=== PATIENT | female | born 1950 | race American Indian/Alaskan Native ===

== ENCOUNTER 2020-01-26 15:30 | Emergency (ER) | payer MEDICARE ==
--- NOTE | 2020-01-26 16:45 | Emergency Department Report ---
ED General Adult HPI - General Chief complaint: Psych Stated complaint: 1013 Time Seen by Provider: 01/26/20 16:13 Source: police Mode of arrival: Ambulatory Limitations: No Limitations - History of Present Illness Initial comments: Patient presents to the emergency department via local PD for evaluation. Patient states she has been going to the same facility daily trying to fill out application for senior housing and today they told her that they want her off the property and called the police. Patient states she was arguing with nobody and was not sure why the police was called. Patient states she was given the choice of going to correction or come to the hospital so she chose the hospital. Patient does have a history of schizophrenia but states she is not manic currently. She states she hears voices constantly in the something she has been dealing with for years. Patient states she is on no medications for schizophrenia. Patient denies visual hallucinations, suicidal ideation, homicidal ideation.Patient states she needs somewhere to live -: unknown Consistency: constant Improves with: none Worsens with: none Associated Symptoms: denies other symptoms Treatments Prior to Arrival: none - Related Data Home Medications Medication Instructions Recorded Confirmed Last Taken Calcium Carbonate [Calcium 600MG 600 mg PO DAILY 01/26/20 01/26/20 1 Day Ago TAB] ~01/25/20 Furosemide [Lasix] 20 mg PO QDAY 01/26/20 01/26/20 1 Day Ago ~01/25/20 metFORMIN [Glucophage] 500 mg PO BID 01/26/20 01/26/20 1 Day Ago ~01/25/20 Allergies Allergy/AdvReac Type Severity Reaction Status Date / Time shellfish derived Allergy Anaphylaxis Verified 01/26/20 16:13 ED Review of Systems ROS: Stated complaint: 1013 Other details as noted in HPI Comment: All other systems reviewed and negative Constitutional: denies: chills, fever Eyes: denies: eye pain, eye discharge, vision change ENT: denies: ear pain, throat pain Respiratory: denies: cough, shortness of breath, wheezing Cardiovascular: denies: chest pain, palpitations Endocrine: no symptoms reported Gastrointestinal: denies: abdominal pain, nausea, diarrhea Genitourinary: denies: urgency, dysuria, discharge Musculoskeletal: denies: back pain, joint swelling, arthralgia Skin: denies: rash, lesions Neurological: denies: headache, weakness, paresthesias Psychiatric: auditory hallucinations. denies: anxiety, depression, visual hallucinations, homicidal thoughts, suicidal thoughts Hematological/Lymphatic: denies: easy bleeding, easy bruising ED Past Medical Hx - Past Medical History Hx Hypertension: Yes Hx Diabetes: Yes - Surgical History Past Surgical History?: No - Social History Smoking Status: Never Smoker Substance Use Type: None - Medications Home Medications: Home Medications Medication Instructions Recorded Confirmed Last Taken Type Calcium Carbonate [Calcium 600MG 600 mg PO DAILY 01/26/20 01/26/20 1 Day Ago History TAB] ~01/25/20 Furosemide [Lasix] 20 mg PO QDAY 01/26/20 01/26/20 1 Day Ago History ~01/25/20 metFORMIN [Glucophage] 500 mg PO BID 01/26/20 01/26/20 1 Day Ago History ~01/25/20 ED Physical Exam - General Limitations: No Limitations General appearance: alert, in no apparent distress - Head Head exam: Present: atraumatic, normocephalic - Eye Eye exam: Present: other ([place] right eye) - ENT ENT exam: Present: mucous membranes moist - Neck Neck exam: Present: normal inspection - Respiratory Respiratory exam: Present: normal lung sounds bilaterally. Absent: respiratory distress, wheezes, rales - Cardiovascular Cardiovascular Exam: Present: regular rate, normal rhythm. Absent: systolic murmur, diastolic murmur, rubs, gallop - GI/Abdominal GI/Abdominal exam: Present: soft, normal bowel sounds. Absent: distended, tenderness - Extremities Exam Extremities exam: Present: normal inspection - Back Exam Back exam: Present: normal inspection - Neurological Exam Neurological exam: Present: alert, oriented X3, CN II-XII intact. Absent: motor sensory deficit - Psychiatric Psychiatric exam: Present: normal affect, normal mood. Absent: homicidal ideation, suicidal ideation - Skin Skin exam: Present: warm, dry, intact, normal color. Absent: rash ED Course Vital Signs 01/26/20 16:03 Temperature 98.1 F Pulse Rate 63 Respiratory 18 Rate Blood Pressure 145/78 O2 Sat by Pulse 99 Oximetry ED Medical Decision Making - Lab Data Result diagrams: 01/26/20 16:37 01/26/20 16:37 Lab Results 01/26/20 01/26/20 01/26/20 Range/Units 16:37 16:37 16:37 WBC (4.5-11.0) K/mm3 RBC (3.65-5.03) M/mm3 Hgb (10.1-14.3) gm/dl Hct (30.3-42.9) % MCV (79-97) fl MCH (28-32) pg MCHC (30-34) % RDW (13.2-15.2) % Plt Count (140-440) K/mm3 Lymph % (Auto) (13.4-35.0) % [place] % (Auto) (0.0-7.3) % Eos % (Auto) (0.0-4.3) % Baso % (Auto) (0.0-1.8) % Lymph # (Auto) (1.2-5.4) K/mm3 [place] # (Auto) (0.0-0.8) K/mm3 Eos # (Auto) (0.0-0.4) K/mm3 Baso # (Auto) (0.0-0.1) K/mm3 Seg Neutrophils % (40.0-70.0) % Seg Neutrophils # (1.8-7.7) K/mm3 Sodium 144 (137-145) mmol/L Potassium 3.8 (3.6-5.0) mmol/L Chloride 105.3 (98-107) mmol/L Carbon Dioxide 28 (22-30) mmol/L Anion Gap 15 mmol/L BUN 19 H (7-17) mg/dL Creatinine 1.2 (0.6-1.2) mg/dL Estimated GFR 45 ml/min BUN/Creatinine Ratio 16 % Glucose 111 H (65-100) mg/dL Calcium 8.8 (8.4-10.2) mg/dL Salicylates < 0.3 L (2.8-20.0) mg/dL Acetaminophen 5.0 L (10.0-30.0) ug/mL Plasma/Serum Alcohol (0-0.07) % 01/26/20 01/26/20 Range/Units 16:37 16:37 WBC 5.8 (4.5-11.0) K/mm3 RBC 4.16 (3.65-5.03) M/mm3 Hgb 12.0 (10.1-14.3) gm/dl Hct 37.3 (30.3-42.9) % MCV 90 (79-97) fl MCH 29 (28-32) pg MCHC 32 (30-34) % RDW 17.0 H (13.2-15.2) % Plt Count 194 (140-440) K/mm3 Lymph % (Auto) 17.6 (13.4-35.0) % [place] % (Auto) 7.7 H (0.0-7.3) % Eos % (Auto) 11.6 H (0.0-4.3) % Baso % (Auto) 0.7 (0.0-1.8) % Lymph # (Auto) 1.0 L (1.2-5.4) K/mm3 [place] # (Auto) 0.4 (0.0-0.8) K/mm3 Eos # (Auto) 0.7 H (0.0-0.4) K/mm3 Baso # (Auto) 0.0 (0.0-0.1) K/mm3 Seg Neutrophils % 62.4 (40.0-70.0) % Seg Neutrophils # 3.6 (1.8-7.7) K/mm3 Sodium (137-145) mmol/L Potassium (3.6-5.0) mmol/L Chloride (98-107) mmol/L Carbon Dioxide (22-30) mmol/L Anion Gap mmol/L BUN (7-17) mg/dL Creatinine (0.6-1.2) mg/dL Estimated GFR ml/min BUN/Creatinine Ratio % Glucose (65-100) mg/dL Calcium (8.4-10.2) mg/dL Salicylates (2.8-20.0) mg/dL Acetaminophen (10.0-30.0) ug/mL Plasma/Serum Alcohol < 0.01 (0-0.07) % - Medical Decision Making Patient given resources for housing by Critical care attestation.: If time is entered above; I have spent that time in minutes in the direct care of this critically ill patient, excluding procedure time. ED Disposition Clinical Impression: Schizophrenia Disposition: DC-01 TO HOME OR SELFCARE Is pt being admited?: No Does the pt Need Aspirin: No Condition: Stable Instructions: Schizophrenia (ED) Additional Instructions: return if worse ONES,GEORGE Female : 1950 MedRec# [id number] 01/26/20 17:43 - MH Sample Driller's Note by GRACIELA DIMAS Acct Num: [id number] : 1950 Patient Age: 69 Transitional [facility] Providers: RAMBO Vega [id number] Jimmy Bunch Jayson [phone] Address: [address] [place] [id number] Original: Hiren Curry [phone] Ms. Gaming: Taryn Hopson [phone] Ms. Yelena Burris Hiren [phone] [facility] [phone] Ms. Nieves: [phone] [facility] Home: [facility] [phone] [facility] Initialized on 01/26/20 17:43 - END OF NOTE Referrals: PRIMARY CARE, [Primary Care Provider[facility] Time of Disposition: 20:10
[2020-01-26 17:39] LABS: Calcium 8.8 mg/dL (8.4-10.2)
[2020-01-26 17:40] LABS: Basophils % (Auto) 0.7 % (0.0-1.8); Eosinophils # (Auto) 0.7 K/mm3 (0.0-0.4); Eosinophils % (Auto) 11.6 % (0.0-4.3); Hematocrit 37.3 % (30.3-42.9); Lymphocytes % (Auto) 17.6 % (13.4-35.0); Mean Corpuscular HGB Conc 32 % (30-34); Mean Corpuscular Volume 90 fl (79-97); Monocytes # (Auto) 0.4 K/mm3 (0.0-0.8); Monocytes % (Auto) 7.7 % (0.0-7.3); Platelet Count 194 K/mm3 (140-440); Red Blood Count 4.16 M/mm3 (3.65-5.03)
[2020-01-27 08:09] VITALS: BP 154/95
== END 2020-01-27 10:00 | disposition home or self-care (01) ==
LOC: ED 15:30
DX: F20.9 Schizophrenia, unspecified (principal); I10 Essential (primary) hypertension; E11.9 Type 2 diabetes mellitus without complications; Z79.84 Long term (current) use of oral hypoglycemic drugs; Z79.899 Other long term (current) drug therapy; Z91.013 Allergy to seafood
CPT/HCPCS: 36415; 80048; 80320; 85025; G0480

== ENCOUNTER 2020-01-27 15:17 | Emergency (ER) | payer MEDICARE ==
--- NOTE | 2020-01-27 16:45 | XRay Report ---
XR chest routine 2V INDICATION / CLINICAL INFORMATION: Chest Pain COMPARISON: None available. FINDINGS: SUPPORT DEVICES: Left transvenous AICD. HEART / MEDIASTINUM: Mildly prominent cardiac silhouette.. LUNGS / PLEURA: Lungs are clear. Costophrenic sulci are sharp. No pneumothorax. ADDITIONAL FINDINGS: No significant additional findings. IMPRESSION: 1. Mild cardiomegaly without acute findings. Signer Name: Félix Garrido MD Signed: 01/27/2020 4:41 PM Workstation Name: [id number]
[2020-01-27 17:02] LABS: Basophils % (Auto) 0.3 % (0.0-1.8); Eosinophils # (Auto) 0.6 K/mm3 (0.0-0.4); Eosinophils % (Auto) 8.6 % (0.0-4.3); Hematocrit 38.1 % (30.3-42.9); Hemoglobin 12.1 gm/dl (10.1-14.3); Lymphocytes # (Auto) 1.5 K/mm3 (1.2-5.4); Lymphocytes % (Auto) 20.8 % (13.4-35.0); Mean Corpuscular HGB Conc 32 % (30-34); Mean Corpuscular Volume 90 fl (79-97); Monocytes # (Auto) 0.4 K/mm3 (0.0-0.8); Monocytes % (Auto) 5.6 % (0.0-7.3); Platelet Count 190 K/mm3 (140-440); Red Blood Count 4.21 M/mm3 (3.65-5.03); Red Cell Distribution Width 17.1 % (13.2-15.2)
[2020-01-27 17:27] LABS: Alanine Aminotransferase 16 units/L (7-56); Albumin 3.7 g/dL (3.9-5); BUN/Creatinine Ratio 20; Blood Urea Nitrogen 18 mg/dL (7-17); Calcium 8.6 mg/dL (8.4-10.2); Hemolysis Index 13
--- NOTE | 2020-01-27 18:56 | Emergency Department Report ---
ED Chest Pain HPI - General Chief Complaint: Chest Pain Stated Complaint: PAIN PUI?: No Time Seen by Provider: 01/27/20 18:41 Source: patient Mode of arrival: Ambulatory Limitations: No Limitations - History of Present Illness Initial Comments: Patient is a 69-year-old female that presents emergency room with complaints of chest pain shortness of breath. Patient states that her chest pain started 10 days ago. Patient states she was here yesterday and discharged this morning. Patient states she is homeless and needed to come back to be evaluated for her chest pain and shortness of breath. Patient states she is hungry. Patient states she needs something to eat. Patient states that her chest pain is a 9 Out of 10. Patient states is in her bilateral chest. patient states that her shortness of breath is unchanged by exertion or movement. Patient denies fever and chills. Patient states that she was here and discharged earlier this morning but she forgot to mention the chest pain is been going on for 12 days. Patient states a place to stay and some food will help her chest pain or shortness of breath. Patient denies recent travel. Patient denies recent international travel. Patient denies exposure to the novel coronavirus. Patient denies sick contacts. Patient denies fever and chills. Patient denies cough. Patient denies diarrhea. Patient denies coming in contact with anybody with symptoms of the novel coronavirus. MD Complaint: chest pain -: Sudden Severity scale (0 -10): 9 Quality: sharp Consistency: constant Improves With: rest Worsens With: movement re: dyspnea. denies: nausea, vomting, diaphoresis, sense of impending doom Other Symptoms: denies: cough, fever, syncope, rash, acid taste in mouth, leg swelling, palpitations, burping Treatments Prior to Arrival: none Aspirin use within the Past 7 Days: (0) No - Related Data On Oral Contraceptives: No Home Medications Medication Instructions Recorded Confirmed Last Taken Calcium Carbonate [Calcium 600MG 600 mg PO DAILY 01/26/20 01/26/20 1 Day Ago TAB] ~01/25/20 Furosemide [Lasix] 20 mg PO QDAY 01/26/20 01/26/20 1 Day Ago ~01/25/20 metFORMIN [Glucophage] 500 mg PO BID 01/26/20 01/26/20 1 Day Ago ~01/25/20 Allergies Allergy/AdvReac Type Severity Reaction Status Date / Time shellfish derived Allergy Anaphylaxis Verified 01/26/20 16:13 Heart Score - HEART Score History: Slightly suspicious EKG: Normal Age: > 65 Risk factors: 1-2 risk factors Troponin: < normal limit HEART Score: 3 ED Review of Systems ROS: Stated complaint: PAIN Other details as noted in HPI Constitutional: denies: chills, fever Eyes: denies: eye pain, eye discharge, vision change ENT: denies: ear pain, throat pain Respiratory: shortness of breath. denies: cough, wheezing Cardiovascular: chest pain. denies: palpitations Endocrine: no symptoms reported Gastrointestinal: denies: abdominal pain, nausea, diarrhea Genitourinary: denies: urgency, dysuria, discharge Musculoskeletal: denies: back pain, joint swelling, arthralgia Skin: denies: rash, lesions Neurological: denies: headache, weakness, paresthesias Psychiatric: denies: anxiety, depression Hematological/Lymphatic: denies: easy bleeding, easy bruising ED Past Medical Hx - Past Medical History Previous Medical History?: Yes Hx Hypertension: Yes Hx Diabetes: Yes - Surgical History Past Surgical History?: No - Social History Smoking Status: Never Smoker Substance Use Type: None - Medications Home Medications: Home Medications Medication Instructions Recorded Confirmed Last Taken Type Calcium Carbonate [Calcium 600MG 600 mg PO DAILY 01/26/20 01/26/20 1 Day Ago History TAB] ~01/25/20 Furosemide [Lasix] 20 mg PO QDAY 01/26/20 01/26/20 1 Day Ago History ~01/25/20 metFORMIN [Glucophage] 500 mg PO BID 01/26/20 01/26/20 1 Day Ago History ~01/25/20 ED Physical Exam - General Limitations: No Limitations General appearance: alert, in no apparent distress - Head Head exam: Present: atraumatic, normocephalic - Eye Eye exam: Present: normal appearance - ENT ENT exam: Present: mucous membranes moist - Neck Neck exam: Present: normal inspection - Respiratory Respiratory exam: Present: normal lung sounds bilaterally, chest wall tenderness. Absent: respiratory distress, wheezes, rales - Cardiovascular Cardiovascular Exam: Present: regular rate, normal rhythm. Absent: systolic murmur, diastolic murmur, rubs, gallop - GI/Abdominal GI/Abdominal exam: Present: soft, normal bowel sounds - Extremities Exam Extremities exam: Present: normal inspection - Back Exam Back exam: Present: normal inspection - Neurological Exam Neurological exam: Present: alert, oriented X3 - Psychiatric Psychiatric exam: Present: normal affect, normal mood - Skin Skin exam: Present: warm, dry, intact, normal color. Absent: rash ED Course Vital Signs 01/27/20 16:07 Temperature 98.4 F Pulse Rate 59 L Respiratory 17 Rate Blood Pressure 153/82 [Left] O2 Sat by Pulse 97 Oximetry - Reevaluation(s) Reevaluation #1: I discussed all results and clinical findings with patient. I discussed plan of care with patient. Patient agrees with plan of care. Patient is stable for discharge. Patient will be discharged home. Patient given discharge instructions. Patient voiced understanding of discharge instructions. Patient's information faxed over to our local [facility] for risk stratification of her chest pain. 01/27/20 19:28 ED Medical Decision Making - Lab Data Result diagrams: 01/27/20 16:17 01/27/20 16:17 - EKG Data -: EKG Interpreted by Me EKG shows normal: sinus rhythm, axis, intervals, QRS complexes, ST-T waves Rate: normal - EKG Data Interpretation: LVH, other (PVCs) - Radiology Data Radiology results: image reviewed interpreted by me: Chest x-ray: No pneumonia, no pneumothorax, no foreign body, no osseous findings, no acute findings. Cardiomegaly noted - Medical Decision Making Patient is a 69-year-old female that presents emergency room complaints of chest pain x12 days. Patient had labs done which were essentially unremarkable. Patient's troponin was negative x2. Patient's EKG is negative for STEMI. Patient's chest x-ray is negative for acute findings. [facility] Patient will be discharged home. Patient will referred to our local cardiology group for risk stratification. Patient given discharge instructions. - Differential Diagnosis Chest pain, costochondritis, shortness of breath, malingering Critical care attestation.: If time is entered above; I have spent that time in minutes in the direct care of this critically ill patient, excluding procedure time. ED Disposition Clinical Impression: SOB (shortness of breath) Chest pain Qualifiers: Chest pain type: unspecified Qualified Code(s): R07.9 - Chest pain, unspecified Disposition: DC-01 TO HOME OR SELFCARE Is pt being admited?: No Does the pt Need Aspirin: No Condition: Stable Instructions: Chest Pain (ED) Additional Instructions: Patient to follow-up with primary care in 2 to 3 days. Patient to follow-up with [facility] in 2 to 3 days. Patient to rest. Patient to increase water. Patient to avoid strenuous exercise or heavy lifting until cleared by card iologist and primary care. Patient to take Tylenol or ibuprofen as needed for pain. Patient to continue all medications. Patient to start 81 mg aspirin daily. Patient to return to the ER if condition worsens, changes or new symptoms arise. Referrals: SHON ROBERTSON MD [Staff Physician] - 2-3 Days PRIMARY CAREMD [Primary Care Provider] - 2-3 Days Time of Disposition: 19:30
[2020-01-27 19:44] VITALS: BP 149/89
== END 2020-01-27 20:00 | disposition home or self-care (01) ==
LOC: ED 15:17
DX: R06.02 Shortness of breath (principal); R07.89 Other chest pain; I10 Essential (primary) hypertension; E11.9 Type 2 diabetes mellitus without complications; Z79.899 Other long term (current) drug therapy; Z91.013 Allergy to seafood
CPT/HCPCS: 36415; 71046; 80053; 84484; 85025; 93005; 99283

== ENCOUNTER 2020-01-30 22:28 | Emergency (ER) | payer MEDICARE ==
[2020-01-30 22:48] VITALS: BP 133/57
[2020-01-31] MEDS ORDERED: IPRATROPIUM/ALBUTEROL SULFATE 3 ML AMPUL.NEB IH ONE (02:00)
[2020-01-31] MEDS ORDERED: dexAMETHasone 20 MG/5 ML VIAL IV ONE (02:00)
[2020-01-31] MEDS ORDERED: ASPIRIN 325 MG TAB PO ONE (02:01)
[2020-01-31 02:16] LABS: Basophils % (Auto) 0.7 % (0.0-1.8); Eosinophils # (Auto) 0.8 K/mm3 (0.0-0.4); Eosinophils % (Auto) 14.4 % (0.0-4.3); Hematocrit 38.7 % (30.3-42.9); Hemoglobin 12.4 gm/dl (10.1-14.3); Lymphocytes # (Auto) 1.3 K/mm3 (1.2-5.4); Lymphocytes % (Auto) 22.2 % (13.4-35.0); Mean Corpuscular HGB Conc 32 % (30-34); Mean Corpuscular Volume 89 fl (79-97); Monocytes # (Auto) 0.5 K/mm3 (0.0-0.8); Monocytes % (Auto) 7.9 % (0.0-7.3); Platelet Count 184 K/mm3 (140-440); Red Blood Count 4.34 M/mm3 (3.65-5.03); Red Cell Distribution Width 17.2 % (13.2-15.2)
[2020-01-31 02:41] LABS: Alanine Aminotransferase 19 units/L (7-56); Albumin 3.9 g/dL (3.9-5); BUN/Creatinine Ratio 11; Blood Urea Nitrogen 10 mg/dL (7-17); Calcium 9.4 mg/dL (8.4-10.2); Hemolysis Index 4
--- NOTE | 2020-01-31 03:07 | XRay Report ---
CHEST 1 VIEW INDICATION: dyspnea, cough COMPARISON: 01/27/2020 FINDINGS: Support devices: None Heart: Upper limits of normal, unchanged Lungs/Pleura: No acute pulmonary or pleural findings. IMPRESSION: 1. No acute disease and no interval change. Signer Name: Abdoul Ricardo MD Signed: 01/31/2020 3:02 AM Workstation Name: [id number]
[2020-01-31] MEDS ORDERED: FUROSEMIDE 20 MG TAB PO ONE (03:52)
--- NOTE | 2020-01-31 05:46 | Emergency Department Report ---
- General Chief Complaint: Upper Respiratory Infection Stated Complaint: HEADACHE, CONGESTION, & LEFT LEG SWELLING Source: patient Mode of arrival: Ambulatory Limitations: No Limitations - History of Present Illness Initial Comments: Patient is a 69-year-old -[place] female with a history of hypertension, [id number] diabetes and chronic lower extremity lymphedema who presents to the ED with acute onset persistent nasal and sinus congestion, persistent productive cough with intermittent wheezing and shortness of breath for the last 1 month, worse in the last 2 days. Patient states that she also ran out of her Lasix and metformin which she has not taken "for a few days". Patient states that she tested positive for cough with 19 viral infection about a month ago and since then her shortness of breath has been persistent. Patient denies chest pain, dizziness, syncope, fever, chills, nausea, vomiting, diarrhea, abdominal pain, dysuria, urinary frequency and urgency, sore throat, palpitations or seizures. MD Complaint: cough, nasal congestion, sinus pain, other (shortness of breath) -: Sudden, month(s) (1) Severity: moderate Severity scale (0 -10): 4 Quality: aching Consistency: intermittent Improves With: nothing Worsens With: nothing Context: sick contacts Associated Symptoms: denies other symptoms, rhinorrhea, nasal congestion, sore throat, cough, shortness of breath. denies: fever, chills, myalgias, diaphoresis, headache, stiff neck, chest pain, abdominal pain, nausea, vomiting, diarrhea, dysuria, rash, right sweats, weight loss, epistaxis, hoarseness, ear pain Treatments Prior to Arrival: none - Related Data Home Medications Medication Instructions Recorded Confirmed Last Taken Calcium Carbonate [Calcium 600MG 600 mg PO DAILY 01/26/20 01/26/20 1 Day Ago TAB] ~01/25/20 Furosemide [Lasix] 20 mg PO QDAY 01/26/20 01/26/20 1 Day Ago ~01/25/20 Previous Rx's Medication Instructions Recorded Last Taken Type Albuterol Sulfate [Proventil Hfa] 1 - 2 puff IH Q6H PRN #1 hfa.aer.ad 01/31/20 Unknown Rx Azithromycin [Zithromax Z-MANUEL] 250 mg PO DAILY #6 tablet 01/31/20 Unknown Rx Benzonatate [Tessalon Perles] 100 mg PO Q8HR #30 capsule 01/31/20 Unknown Rx Cetirizine HCl [Zyrtec 10mg tab] 10 mg PO DAILY #30 tablet 01/31/20 Unknown Rx Furosemide [Lasix TAB] 40 mg PO QDAY #30 tablet 01/31/20 Unknown Rx Potassium Chloride [K-Dur] 20 meq PO BID #30 tab 01/31/20 Unknown Rx metFORMIN [Glucophage] 500 mg PO Q12H #60 01/31/20 Unknown Rx Allergies Allergy/AdvReac Type Severity Reaction Status Date / Time shellfish derived Allergy Anaphylaxis Verified 01/26/20 16:13 ED Review of Systems ROS: Stated complaint: HEADACHE, CONGESTION, & LEFT LEG SWELLING Other details as noted in HPI Constitutional: malaise. denies: chills, fever Eyes: denies: eye pain, eye discharge, vision change ENT: congestion. denies: ear pain, throat pain Respiratory: cough, shortness of breath, wheezing Cardiovascular: denies: chest pain, palpitations, dyspnea on exertion, edema, syncope, paroxysmal nocturnal dyspnea Endocrine: no symptoms reported Gastrointestinal: denies: abdominal pain, nausea, vomiting, diarrhea Genitourinary: denies: urgency, dysuria, discharge Musculoskeletal: joint swelling (Bilateral lower extremity swelling ). denies: back pain, arthralgia Skin: denies: rash, lesions Neurological: denies: headache, weakness, paresthesias Psychiatric: denies: anxiety, depression Hematological/Lymphatic: denies: easy bleeding, easy bruising ED Past Medical Hx - Past Medical History Hx Hypertension: Yes Hx Diabetes: Yes Additional medical history: legal blind - Social History Smoking Status: Never Smoker Substance Use Type: Alcohol - Medications Home Medications: Home Medications Medication Instructions Recorded Confirmed Last Taken Type Calcium Carbonate [Calcium 600MG 600 mg PO DAILY 01/26/20 01/26/20 1 Day Ago History TAB] ~01/25/20 Furosemide [Lasix] 20 mg PO QDAY 01/26/20 01/26/20 1 Day Ago History ~01/25/20 Albuterol Sulfate [Proventil Hfa] 1 - 2 puff IH Q6H PRN #1 hfa.aer.ad 01/31/20 Unknown Rx Azithromycin [Zithromax Z-MANUEL] 250 mg PO DAILY #6 tablet 01/31/20 Unknown Rx Benzonatate [Tessalon Perles] 100 mg PO Q8HR #30 capsule 01/31/20 Unknown Rx Cetirizine HCl [Zyrtec 10mg tab] 10 mg PO DAILY #30 tablet 01/31/20 Unknown Rx Furosemide [Lasix TAB] 40 mg PO QDAY #30 tablet 01/31/20 Unknown Rx Potassium Chloride [K-Dur] 20 meq PO BID #30 tab 01/31/20 Unknown Rx metFORMIN [Glucophage] 500 mg PO Q12H #60 01/31/20 Unknown Rx ED Physical Exam - General Limitations: No Limitations General appearance: alert, in no apparent distress - Head Head exam: Present: atraumatic, normocephalic, normal inspection - Eye Eye exam: Present: normal appearance, PERRL, EOMI Pupils: Present: normal accommodation - ENT ENT exam: Present: normal orophraynx, mucous membranes moist, TM's normal bilaterally, normal external ear exam, other (Grossly congested nasal passages with palpable frontal sinus tenderness) - Neck Neck exam: Present: normal inspection, full ROM. Absent: tenderness, lymphadenopathy - Respiratory Respiratory exam: Present: wheezes (Diffuse coarse wheezes throughout). Absent: respiratory distress, rales, rhonchi, stridor, chest wall tenderness, accessory muscle use, decreased breath sounds - Cardiovascular Cardiovascular Exam: Present: regular rate, normal rhythm, normal heart sounds. Absent: systolic murmur, diastolic murmur, rubs, gallop - GI/Abdominal GI/Abdominal exam: Present: soft, normal bowel sounds. Absent: tenderness, guarding, rebound, hyperactive bowel sounds, organomegaly - Extremities Exam Extremities exam: Present: normal inspection, full ROM, normal capillary refill, pedal edema (Bilateral 2+ lower extremity edema). Absent: tenderness, calf tenderness - Back Exam Back exam: Present: normal inspection, full ROM. Absent: tenderness, CVA tenderness (R), CVA tenderness (L), muscle spasm, paraspinal tenderness, vertebral tenderness - Neurological Exam Neurological exam: Present: alert, oriented X3, CN II-XII intact, normal gait, reflexes normal - Psychiatric Psychiatric exam: Present: normal affect, normal mood - Skin Skin exam: Present: warm, dry, intact, normal color. Absent: rash ED Course Vital Signs 01/30/20 22:47 Temperature 98.3 F Pulse Rate 69 Respiratory 15 Rate Blood Pressure 133/57 O2 Sat by Pulse 95 Oximetry ED Medical Decision Making - Lab Data Result diagrams: 01/31/20 02:05 01/31/20 02:05 - Radiology Data Radiology results: report reviewed, image reviewed Findings [facility] [address] [place] [address] XRay Report Signed Patient: GEORGE RICO MR#: [id number] : 1950 Acct:[id number] Age/Sex: 69 / F ADM Date: 01/30/20 Loc: ED Attending Dr: Ordering Physician: CORTNEY SAUNDERS Date of Service: 01/31/20 Procedure(s): XR chest 1V ap Accession Number(s): [id number] cc: CORTNEY SAUNDERS Fluoro Time In Minutes: CHEST 1 VIEW INDICATION: dyspnea, cough COMPARISON: 01/27/2020 FINDINGS: Support devices: None Heart: Upper limits of normal, unchanged Lungs/Pleura: No acute pulmonary or pleural findings. IMPRESSION: 1. No acute disease and no interval change. Signer Name: Abdoul Ricardo MD Signed: 01/31/2020 3:02 AM Workstation Name: [id number] Transcribed By: TM Dictated By: Abdoul Ricardo MD Electronically Authenticated By: Abdoul Ricardo MD Signed Date/Time: 01/31/20301 DD/ 1 TD/TT: - Medical Decision Making This is a 69-year-old -[place] female with a history of hypertension, snq-nhdrobj-[id number] diabetes and chronic lower extremity lymphedema who presents to the ED with acute onset persistent nasal and sinus congestion, persistent productive cough with intermittent wheezing and shortness of breath for the last 1 month, worse in the last 2 days. Patient states that she also ra n out of her Lasix and metformin which she has not taken "for a few days". Patient states that she tested positive for cough with 19 viral infection about a month ago and since then her shortness of breath has been persistent. In the ED, patient is alert and oriented x3 and is not in distress with normal vital signs. Patient was treated in the ED with DuoNeb and steroids, and also given aspirin in the ED. Lab test results were reviewed and showed BNP of 3594. The rest of the lab test results including initial and repeat troponin levels were nonactionable. Chest x-ray showed no acute cardiopulmonary abnormalities or pneumonitis. EKG showed sinus rhythm with ventricular rate of 74 bpm but with ventricular premature complexes, probable LVH, and nonspecific T wave abnormalities on the lateral leads with prolonged QT interval. Patient was treated in the ED with Lasix 40 mg p.o. x1 as well. On reevaluation, patient felt better and was discharged home on medications including refill of her regular medications including Lasix and metformin. Patient was advised to follow-up with her primary care physician in 2 days for reevaluation or return to the ED immediately if symptoms get worse. - Differential Diagnosis Pneumonia; Covid; Bronchitis; CHF; CAD; PE; URI Critical care attestation.: If time is entered above; I have spent that time in minutes in the direct care of this critically ill patient, excluding procedure time. ED Disposition Clinical Impression: Acute upper respiratory infection, Shortness of breath, Edema of both lower extremities Acute bronchitis Qualifiers: Bronchitis organism: other organism Qualified Code(s): J20.8 - Acute bronchitis due to other specified organisms Fluid overload Qualifiers: Hypervolemia type: unspecified Qualified Code(s): E87.70 - Fluid overload, unspecified Disposition: DC-01 TO HOME OR SELFCARE Is pt being admited?: No Does the pt Need Aspirin: No Condition: Stable Instructions: Acute Bronchitis (ED) Additional Instructions: Take medication with food, drink plenty of fluids and follow-up with your primary care physician in 3 to 5 days for reevaluation. Return to the ED immediately if symptoms get worse. Prescriptions: metFORMIN [Glucophage] 500 mg PO Q12H #60 Potassium Chloride [K-Dur] 20 meq PO BID #30 tab Furosemide [Lasix TAB] 40 mg PO QDAY #30 tablet Albuterol Sulfate [Proventil Hfa] 1 - 2 puff IH Q6H PRN #1 hfa.aer.ad PRN Reason: Dyspnea Benzonatate [Tessalon Perles] 100 mg PO Q8HR #30 capsule Azithromycin [Zithromax Z-MANUEL] 250 mg PO DAILY #6 tablet Cetirizine HCl [Zyrtec 10mg tab] 10 mg PO DAILY #30 tablet Referrals: [facility] [Provider Group] - 3-5 Days Time of Disposition: 05:56 Print Language: SPANISH
== END 2020-01-31 06:15 | disposition home or self-care (01) ==
LOC: ED 22:28
DX: J20.8 Acute bronchitis due to other specified organisms (principal); E87.70 Fluid overload, unspecified; J06.9 Acute upper respiratory infection, unspecified; I10 Essential (primary) hypertension; E11.9 Type 2 diabetes mellitus without complications; Z79.899 Other long term (current) drug therapy; Z91.013 Allergy to seafood
CPT/HCPCS: 36415; 71045; 80053; 83880; 84484; 85025; 93005; 94640; 96374; 99284; J1100

== ENCOUNTER 2020-03-29 01:16 | Observation (INO) | payer MEDICARE ==
[2020-03-29 02:14] LABS: Basophils % (Auto) 0.5 % (0.0-1.8); Eosinophils # (Auto) 0.3 K/mm3 (0.0-0.4); Eosinophils % (Auto) 2.6 % (0.0-4.3); Hematocrit 32.4 % (30.3-42.9); Hemoglobin 10.3 gm/dl (10.1-14.3); Lymphocytes % (Auto) 9.8 % (13.4-35.0); Mean Corpuscular HGB Conc 32 % (30-34); Mean Corpuscular Volume 88 fl (79-97); Monocytes # (Auto) 0.6 K/mm3 (0.0-0.8); Monocytes % (Auto) 6.7 % (0.0-7.3); Platelet Count 291 K/mm3 (140-440); Red Cell Distribution Width 16.7 % (13.2-15.2)
[2020-03-29] MEDS ORDERED: ASPIRIN 325 MG TAB PO ONE (02:26)
--- NOTE | 2020-03-29 02:28 | Emergency Department Report ---
ED General Adult HPI - General Chief complaint: Extremity Injury, Lower Stated complaint: LEG SWELLING UNABLE TO BARE WEIGHT PUI?: No Time Seen by Provider: 03/29/20 01:58 Source: patient, global cto Mode of arrival: Stretcher Limitations: Physical Limitation - History of Present Illness Initial comments: Patient is a 69-year-old female that presents emergency room with complaints of shortness of breath, lower extremity swelling and pain and difficulty walking. Patient states her symptoms been going on for 2 to 3 days. Patient does have difficulty walking because of the swelling and the shortness of breath. Patient states the pain in her legs is a 5 out of 10. Patient dates that the pain in her legs is better with rest and worse with movement and palpation. Patient states her shortness of breath is better with rest and worse with exertion. Patient denies fever and chills. Patient states her symptoms are worsening. Patient denies chest pain. Patient denies fever. Patient denies nausea and vomiting. Patient denies diaphoresis. Patient denies recent travel. Patient denies recent international travel. Patient denies exposure to the novel coronavirus. Patient denies sick contacts. Patient denies fever and chills. Patient denies cough. Patient denies diarrhea. Patient denies coming in contact with anybody with symptoms of the novel coronavirus. -: Sudden, days(s) Location: left, right, lower extremity Radiation: non-radiation Severity scale (0 -10): 5 Quality: aching Consistency: constant Improves with: rest Worsens with: movement Associated Symptoms: shortness of breath. denies: confusion, chest pain, cough, diaphoresis, fever/chills, headaches, loss of appetite, malaise, nausea/vomiting, rash, seizure, syncope, weakness Treatments Prior to Arrival: none - Related Data Home Medications Medication Instructions Recorded Confirmed Last Taken Furosemide [Lasix] 20 mg PO QDAY 01/26/20 03/29/20 1 Day Ago ~01/25/20 Previous Rx's Medication Instructions Recorded Last Taken Type Albuterol Sulfate [Proventil Hfa] 1 - 2 puff IH Q6H PRN #1 hfa.aer.ad 01/31/20 Unknown Rx Furosemide [Lasix TAB] 40 mg PO QDAY #30 tablet 01/31/20 Unknown Rx metFORMIN [Glucophage] 500 mg PO Q12H #60 01/31/20 Unknown Rx Allergies Allergy/AdvReac Type Severity Reaction Status Date / Time shellfish derived Allergy Anaphylaxis Verified 01/26/20 16:13 ED Review of Systems ROS: Stated complaint: LEG SWELLING UNABLE TO BARE WEIGHT Other details as noted in HPI Constitutional: denies: chills, fever Eyes: denies: eye pain, eye discharge, vision change ENT: denies: ear pain, throat pain Respiratory: shortness of breath. denies: cough, wheezing Cardiovascular: edema. denies: chest pain, palpitations Endocrine: no symptoms reported Gastrointestinal: denies: abdominal pain, nausea, diarrhea Genitourinary: denies: urgency, dysuria, discharge Musculoskeletal: denies: back pain, joint swelling, arthralgia Skin: denies: rash, lesions Neurological: denies: headache, weakness, paresthesias Psychiatric: denies: anxiety, depression Hematological/Lymphatic: denies: easy bleeding, easy bruising ED Past Medical Hx - Past Medical History Previous Medical History?: Yes Hx Hypertension: Yes Hx Heart Attack/AMI: No Hx Congestive Heart Failure: No Hx Diabetes: Yes Additional medical history: legal blind - Surgical History Past Surgical History?: No - Family History Family history: no significant - Social History Smoking Status: Never Smoker Substance Use Type: None - Medications Home Medications: Home Medications Medication Instructions Recorded Confirmed Last Taken Type Furosemide [Lasix] 20 mg PO QDAY 01/26/20 03/29/20 1 Day Ago History ~01/25/20 Albuterol Sulfate [Proventil Hfa] 1 - 2 puff IH Q6H PRN #1 hfa.aer.ad 01/31/20 03/29/20 Unknown Rx Furosemide [Lasix TAB] 40 mg PO QDAY #30 tablet 01/31/20 03/29/20 Unknown Rx metFORMIN [Glucophage] 500 mg PO Q12H #60 01/31/20 03/29/20 Unknown Rx ED Physical Exam - General Limitations: Physical Limitation General appearance: alert, in no apparent distress - Head Head exam: Present: atraumatic, normocephalic - Eye Eye exam: Present: normal appearance - ENT ENT exam: Present: mucous membranes moist - Neck Neck exam: Present: normal inspection - Respiratory Respiratory exam: Present: normal lung sounds bilaterally. Absent: respiratory distress - Cardiovascular Cardiovascular Exam: Present: regular rate, normal rhythm. Absent: systolic murmur, diastolic murmur, rubs, gallop - GI/Abdominal GI/Abdominal exam: Present: soft, normal bowel sounds - Rectal Rectal exam: Present: deferred - Extremities Exam Extremities exam: Present: tenderness, normal capillary refill, pedal edema, calf tenderness, other (Bilateral lower extremity edema and tenderness to palpation.) - Back Exam Back exam: Present: normal inspection - Neurological Exam Neurological exam: Present: alert, oriented X3 - Psychiatric Psychiatric exam: Present: normal affect, normal mood - Skin Skin exam: Present: warm, dry, intact, normal color. Absent: rash ED Course Vital Signs 03/29/20 03/29/20 03/29/20 01:22 01:58 02:00 Temperature 98.5 F Pulse Rate 81 82 81 Respiratory 16 16 18 Rate Blood Pressure 156/81 141/83 O2 Sat by Pulse 97 75 L 76 L Oximetry 03/29/20 03/29/20 03/29/20 02:16 02:30 02:46 Temperature Pulse Rate 79 78 79 Respiratory 14 13 16 Rate Blood Pressure 141/76 151/87 154/76 O2 Sat by Pulse 99 95 98 Oximetry 03/29/20 03/29/20 03/29/20 03:00 03:16 03:30 Temperature Pulse Rate 83 81 84 Respiratory 17 44 H 19 Rate Blood Pressure 154/86 162/88 151/87 O2 Sat by Pulse 95 96 95 Oximetry 03/29/20 03/29/20 03/29/20 03:46 04:30 04:45 Temperature Pulse Rate 86 82 77 Respiratory 24 16 19 Rate Blood Pressure 154/76 173/89 150/80 O2 Sat by Pulse 93 99 97 Oximetry 03/29/20 03/29/20 05:00 05:15 Temperature Pulse Rate 82 74 Respiratory 21 19 Rate Blood Pressure 150/80 157/72 O2 Sat by Pulse 94 90 Oximetry - Reevaluation(s) Reevaluation #1: I discussed all results with patient. I discussed plan of care with patient. Patient agrees with plan of care and admission. Patient to be admitted to the hospitalist service. Patient will be given IV Lasix prior to admission 03/29/20 04:02 - Consultations Consultation #1: Hospitalist consulted for admission. Hospitalist to admit patient. 03/29/20 04:02 ED Medical Decision Making - Lab Data Result diagrams: 03/29/20 05:48 03/29/20 02:01 - EKG Data -: EKG Interpreted by [facility] EKG shows normal: sinus rhythm, axis, intervals, QRS complexes, ST-T waves Rate: normal - Radiology Data Radiology results: report reviewed, image reviewed CHEST - 1 VIEW INDICATION: sob COMPARISON: 01/31/2020 FINDINGS: SUPPORT DEVICES: Stable support device positioning. HEART: Stable cardiomediastinal silhouette. LUNGS/PLEURA: Mild central vascular congestion with no consolidation or effusion. ADDITIONAL FINDINGS: None. IMPRESSION: Mild central vascular congestion changes. DUPLEX DOPPLER LOWER EXTREMITY VEINS, BILATERAL INDICATION: LE pain and swelling. TECHNIQUE: Duplex doppler imaging was performed through the veins of both lower extremities using venous compression and other maneuvers. COMPARISON: No relevant prior imaging study available. FINDINGS: Right Common femoral vein: Negative. Right Superficial femoral vein: Negative. Right Popliteal vein: Negative. Right Calf veins: Negative. Left Common femoral vein: Negative. Left Superficial femoral vein: Negative. Left Popliteal vein: Negative. Left Calf veins: Negative. Additional findings: None.. IMPRESSION: 1. No sonographic evidence for DVT in either lower extremity. - Medical Decision Making Patient is a 69-year-old female that presents emergency room with complaints of shortness of breath, dyspnea exertion, lower extremity pain and swelling. Patient had a chest x-ray which showed CHF changes. Chest x-ray is positive for pulmonary edema. Patient's BNP is extremely elevated. Patient complains of lower extremity swelling up to her knee. Patient has 4+ pitting edema. Patient given IV Lasix in the ER. Patient also given aspirin in the ER. Patient's troponins were negative. Patient's ultrasound done in the ER. Patient admitted to the hospital service for further evaluation treatment. - Differential Diagnosis S OB, new onset CHF, DVT, lower extremity swelling, lower extremity pain. Critical Care Time: Yes Critical care time in (mins) excluding proc time.: 35 Critical care attestation.: If time is entered above; I have spent that time in minutes in the direct care of this critically ill patient, excluding procedure time. Critical Care Time: 35 minutes ED Disposition Clinical Impression: SOB (shortness of breath), MURRIETA (dyspnea on exertion), Swelling of lower extremity, New onset of congestive heart failure Lower extremity pain Qualifiers: Laterality: bilateral Qualified Code(s): M79.604 - Pain in right leg Disposition: OP ADMIT IP TO THIS HOSP Is pt being admited?: Yes Does the pt Need Aspirin: No Condition: Critical Time of Disposition: 04:02
[2020-03-29 02:33] LABS: BUN/Creatinine Ratio 12; Blood Urea Nitrogen 11 mg/dL (7-17); Calcium 8.4 mg/dL (8.4-10.2); Hemolysis Index 3
--- NOTE | 2020-03-29 03:32 | XRay Report ---
CHEST - 1 VIEW INDICATION: sob COMPARISON: 01/31/2020 FINDINGS: SUPPORT DEVICES: Stable support device positioning. HEART: Stable cardiomediastinal silhouette. LUNGS/PLEURA: Mild central vascular congestion with no consolidation or effusion. ADDITIONAL FINDINGS: None. IMPRESSION: Mild central vascular congestion changes. Signer Name: Prasanna Villarreal MD Signed: 03/29/2020 3:28 AM Workstation Name: [id number]
[2020-03-29] MEDS ORDERED: FUROSEMIDE 100 MG in SODIUM CHLORIDE 0.9% 90 ML IV ONE (03:47)
[2020-03-29] MEDS ORDERED: FUROSEMIDE 20 MG/2 ML INJ ONE (03:59)
[2020-03-29] MEDS ORDERED: FUROSEMIDE 40 MG/4 ML INJ IV ONE (03:59)
[2020-03-29] MEDS ORDERED: MORPHINE 2 MG/1 ML INJ IV ONE (04:06)
[2020-03-29] MEDS ORDERED: FUROSEMIDE 100 MG/10 ML INJ IV ONE (04:30)
--- NOTE | 2020-03-29 04:55 | Vascular Lab Report ---
DUPLEX DOPPLER LOWER EXTREMITY VEINS, BILATERAL INDICATION: LE pain and swelling. TECHNIQUE: Duplex doppler imaging was performed through the veins of both lower extremities using venous raman omar and other maneuvers. COMPARISON: No relevant prior imaging study available. FINDINGS: Right Common femoral vein: Negative. Right Superficial femoral vein: Negative. Right Popliteal vein: Negative. Right Calf veins: Negative. Left Common femoral vein: Negative. Left Superficial femoral vein: Negative. Left Popliteal vein: Negative. Left Calf veins: Negative. Additional findings: None.. IMPRESSION: 1. No sonographic evidence for DVT in either lower extremity. Signer Name: Prasanna Villarreal MD Signed: 03/29/2020 4:51 AM Workstation Name: [id number]
[2020-03-29] MEDS ORDERED: METOCLOPRAMIDE 10 MG/2 ML INJ IV PRN (05:12)
[2020-03-29] MEDS ORDERED: ONDANSETRON 4 MG/2 ML INJ IV PRN (05:12)
[2020-03-29] MEDS ORDERED: SENNOSIDES 8.6 MG TAB PO PRN (05:12)
[2020-03-29] MEDS ORDERED: ALBUTEROL 2.5 MG/3 ML NEBU IH PRN (05:12)
[2020-03-29] MEDS ORDERED: ALUM-MAG HYDROXIDE-SIMETHICONE 200-200-20MG/5ML ORAL LIQD 30 ML PO PRN (05:12)
--- NOTE | 2020-03-29 05:21 | History and Physical Report ---
History of Present Illness Date of examination: 03/29/20 Date of admission: 03/29/20 04:05 Chief complaint: Shortness of breath Chest pain Hx CHF Bilateral leg wade History of present illness: Patient is a 69-year-old female seen at bedside in ED. She presents to emergency room with complaints of shortness of breath, lower extremity swelling and pain and difficulty walking. Patient states her symptoms been going on for 2 to 3 days. Patient does have difficulty walking because of the swelling and the shortness of breath. Patient has history of multiple admission mostly complication of noncompliance with her CHF medicine. Patient states her shortness of breath is better with rest and worse with exertion. Patient denies alcohol, tobacco and illicit drug use. She has past medical history of CHF with implanted ICD, Hypertension, and diabetes. She admits shortness of breath, bilateral Leg pain, chest pain, but denies fever and chills. She said chest pain is non-radiating. Patient was strongly advised to be compliance with her CHF therapy to prevent multiple hospital admissions. patient voiced understanding ED work up; WBC 9.7, hemoglobin 10.3, Plt 291, Sodium 141, Potassium 3.3, Cr 0.9 BNP 10,465, troponin <0.010 Chest x-ray shows mild central congestion Bilateral leg US-negative for DVT Past History Past Medical History: diabetes, heart failure, hypertension, hyperlipidemia Past Surgical History: Other (ICD placement) Social history: no significant social history, lives with family Family history: no significant family history Medications and Allergies Allergies Allergy/AdvReac Type Severity Reaction Status Date / Time shellfish derived Allergy Anaphylaxis Verified 01/26/20 16:13 Home Medications Medication Instructions Recorded Confirmed Last Taken Type Furosemide [Lasix] 20 mg PO QDAY 01/26/20 03/29/20 1 Day Ago History ~01/25/20 Albuterol Sulfate [Proventil Hfa] 1 - 2 puff IH Q6H PRN #1 hfa.aer.ad 01/31/20 03/29/20 Unknown Rx Furosemide [Lasix TAB] 40 mg PO QDAY #30 tablet 01/31/20 03/29/20 Unknown Rx metFORMIN [Glucophage] 500 mg PO Q12H #60 01/31/20 03/29/20 Unknown Rx Active Meds: Active Medications Acetaminophen (Tylenol) 650 mg PO Q4H PRN PRN Reason: Pain MILD(1-3)/Fever >100.5/RICO Al Hydrox/Mg Hydrox/Simethicone (Alum-Mag Hydrox-Simeth [id number]/5ml) 30 ml PO Q4H PRN PRN Reason: Indigestion Albuterol (Proventil) 2.5 mg IH Q4HRT PRN PRN Reason: Shortness Of Breath Famotidine (Pepcid) 20 mg IV BID DAX Furosemide (Lasix) 40 mg IV 0600,1800 DAX Metoclopramide HCl (Reglan) 10 mg IV Q6H PRN PRN Reason: Nausea And Vomiting Ondansetron HCl (Zofran) 4 mg IV Q8H PRN PRN Reason: Nausea And Vomiting Potassium Chloride (K-Dur) 40 meq PO ONCE ONE Stop: 03/29/20 05:30 Potassium Chloride (K-Dur) 40 meq PO QDAY DAX Senna (Senokot) 8.6 mg PO Q12HR PRN PRN Reason: Constipation Sodium Chloride (Sodium Chloride Flush Syringe 10 Ml) 10 ml IV BID DAX Sodium Chloride (Sodium Chloride Flush Syringe 10 Ml) 10 ml IV PRN PRN PRN Reason: LINE FLUSH Zolpidem Tartrate (Ambien) 5 mg PO QHS PRN PRN Reason: Insomnia Review of Systems Constitutional: fatigue, chronic pain Ears, nose, mouth and throat: no epistaxis, no bleeding gums Breasts: no discharge Cardiovascular: chest pain, orthopnea, edema, shortness of breath, dyspnea on exertion, high blood pressure, leg edema, decreased exercise tolerance Respiratory: shortness of breath, no excessive sputum Gastrointestinal: nausea, vomiting, no abdominal pain Genitourinary Female: hematuria, no pelvic pain Musculoskeletal: other (leg pain on ambulation), no neck stiffness Neurological: no paralysis, no seizures Psychiatric: other (non-compliance with treatment) Allergic/Immunologic: no urticaria, no angioedema Exam - Constitutional Vitals: Temp Pulse Resp BP Pulse Ox 98.5 F 81 16 156/81 97 03/29/20 01:22 03/29/20 01:22 03/29/20 01:22 03/29/20 01:22 03/29/20 01:22 General appearance: Present: mild distress, obese - EENT Eyes: Present: PERRL ENT: poor dentition - Neck Neck: Present: supple, normal ROM - Respiratory Respiratory effort: normal Respiratory: bilateral: diminished - Cardiovascular Heart rate: 81 Heart Sounds: Present: S1 & S2. Absent: rub, click - Extremities Extremities: pulses symmetrical Extremity abnormal: edema, tenderness Peripheral Pulses: within normal limits - Abdominal General gastrointestinal: Present: soft, non-tender, non-distended, normal bowel sounds Female genitourinary: Present: normal - Integumentary Integumentary: Present: clear, warm, dry - Musculoskeletal Musculoskeletal: generalized weakness - Psychiatric Psychiatric: appropriate mood/affect, intact judgment & insight, cooperative - Neurologic Neurologic: CNII-XII intact, moves all extremities - Allied Health Allied health notes reviewed: nursing HEART Score - HEART Score Troponin: Troponin T < 0.010 ng/mL (0.00-0.029) 03/29/20 03:06 Results - Labs CBC & Chem 7: 03/29/20 02:01 03/29/20 02:01 Labs: Abnormal lab results 03/29/20 03/29/20 03/29/20 Range/Units 02:01 02:01 03:06 RDW 16.7 H (13.2-15.2) % Lymph % (Auto) 9.8 L (13.4-35.0) % Lymph # (Auto) 1.0 L (1.2-5.4) K/mm3 Seg Neutrophils % 80.4 H (40.0-70.0) % Seg Neutrophils # 7.8 H (1.8-7.7) K/mm3 Potassium 3.3 L (3.6-5.0) mmol/L Glucose 108 H (65-100) mg/dL NT-Pro-B Natriuret Pep 93712 H (0-900) pg/mL Assessment and Plan - Patient Problems (1) Acute on chronic congestive heart failure Current Visit: Yes Status: Acute Plan to address problem: Continue cardioprotective measures ASA, BB, diuretic, and statin BNP 10,[address] Schumacher Chest x-ray-Mild central congestion ECHO-f/u with result Pt has left sternal ICD (2) SOB (shortness of breath) Current Visit: Yes Status: Acute Plan to address problem: Mostly likely 2/2 to CHF Continue diuretics Chest x-ray mild central congestion On room air (3) Essential (primary) hypertension Current Visit: Yes Status: Acute Plan to address problem: Monitor blood pressure Continue antihypertensive Adjust if needed (4) Lower extremity pain Current Visit: Yes Status: Acute Qualifiers: Laterality: bilateral Qualified Code(s): M79.604 - Pain in right leg; M79.605 - Pain in left leg Plan to address problem: likely 2/2 to CHF Continue diuretics Bilateral leg US-negative for DVT (5) Swelling of lower extremity Current Visit: Yes Status: Acute Plan to address problem: Bilateral US-negative for dvt continue diuretic ECHO ordered-f/u with result Transmission Operator consult (6) Diabetes Current Visit: Yes Status: Acute Plan to address problem: Monitor blood sugar with SSI patient on home [id number] at d/c check hga1c (7) Hypokalemia Current Visit: Yes Status: Acute Plan to address problem: replace potassium Am lab bmp and monitor electrolyte (8) DVT prophylaxis Current Visit: Yes Status: Acute Plan to address problem: Lovenox
[2020-03-29] MEDS ORDERED: POTASSIUM CHLORIDE ER 20 MEQ TAB PO ONE (05:29)
[2020-03-29] MEDS: ACETAMINOPHEN 325 MG TAB PO PRN ×2 (06:07→22:03)
[2020-03-29 06:08] LABS: Basophils % (Auto) 0.5 % (0.0-1.8); Eosinophils # (Auto) 0.3 K/mm3 (0.0-0.4); Eosinophils % (Auto) 3.5 % (0.0-4.3); Hematocrit 31.6 % (30.3-42.9); Hemoglobin 10.2 gm/dl (10.1-14.3); Lymphocytes # (Auto) 0.9 K/mm3 (1.2-5.4); Lymphocytes % (Auto) 10.3 % (13.4-35.0); Mean Corpuscular HGB Conc 32 % (30-34); Mean Corpuscular Volume 88 fl (79-97); Monocytes # (Auto) 0.7 K/mm3 (0.0-0.8); Monocytes % (Auto) 7.5 % (0.0-7.3); Platelet Count 258 K/mm3 (140-440); Red Blood Count 3.59 M/mm3 (3.65-5.03); Red Cell Distribution Width 16.7 % (13.2-15.2)
[2020-03-29 06:28] LABS: Alanine Aminotransferase 19 units/L (7-56); Albumin 2.9 g/dL (3.9-5); BUN/Creatinine Ratio 11; Blood Urea Nitrogen 11 mg/dL (7-17); Calcium 8.6 mg/dL (8.4-10.2); Chol/HDL Ratio 1.64 %; HDL Cholesterol 48 mg/dL (40-59); Hemolysis Index 2; LDL Cholesterol,Direct 18 mg/dL (50-130)
[2020-03-29 07:51] LABS: Bacteria,Urine 1+ /HPF (Negative); Bilirubin,Urine NEG (Negative); Blood,Urine SM (Negative); Color,Urine Colorless (Yellow); Protein,Urine <15 mg/dL mg/dL (Negative); Urobilinogen,Urine < 2.0 mg/dL (<2.0); WBC,Urine < 1.0 /HPF (0.0-6.0)
[2020-03-29] MEDS: ASPIRIN 81 MG TAB CHEW PO SCH (09:54)
[2020-03-29] MEDS: carvediloL 12.5 MG TAB PO SCH ×2 (09:54→22:03)
[2020-03-29] MEDS: FAMOTIDINE 20 MG/2 ML INJ IV SCH ×2 (09:55→22:02)
--- NOTE | 2020-03-29 11:22 | Consultation ---
<LUCY ROBERSON - Last Filed: 03/29/20 11:10> History of Present Illness Consult date: 03/29/20 Consult reason: congestive heart failure History of present illness: This is a 69-year old woman with a long standing history of dilated cardiomyopathy and has a cardiac defibrillator insitu. She receives her usual care at [facility]. She presents to this hospital with shortness of breath, lower extremity edema. Chest x-ray showed findings of interstitial edema. Lower extremity doppler was negative for DVT. A cardiac consultation has been requested for CHF management. Patient is currently resting in bed and appears comfortable. She reports progressive shortness of breath since running out of her medications several weeks ago. She denies chest pain, denies palpitations, denies fever and denies coughs. No report of AICD discharge. Past History Past Medical History: diabetes, heart failure, hypertension, hyperlipidemia Past Surgical History: Other (ICD placement) Social history: no significant social history, lives with family Family history: no significant family history Medications and Allergies Allergies Allergy/AdvReac Type Severity Reaction Status Date / Time shellfish derived Allergy Anaphylaxis Verified 01/26/20 16:13 Home Medications Medication Instructions Recorded Confirmed Last Taken Type Furosemide [Lasix] 20 mg PO QDAY 01/26/20 03/29/20 1 Day Ago History ~01/25/20 Albuterol Sulfate [Proventil Hfa] 1 - 2 puff IH Q6H PRN #1 hfa.aer.ad 01/31/20 03/29/20 Unknown Rx Furosemide [Lasix TAB] 40 mg PO QDAY #30 tablet 01/31/20 03/29/20 Unknown Rx metFORMIN [Glucophage] 500 mg PO Q12H #60 01/31/20 03/29/20 Unknown Rx Active Meds: Active Medications Acetaminophen (Tylenol) 650 mg PO Q4H PRN PRN Reason: Pain MILD(1-3)/Fever >100.5/RICO Last Admin: 03/29/20 06:07 Dose: 650 mg Documented by: Al Hydrox/Mg Hydrox/Simethicone (Alum-Mag Hydrox-Simeth [id number]/5ml) 30 ml PO Q4H PRN PRN Reason: Indigestion Albuterol (Proventil) 2.5 mg IH Q4HRT PRN PRN Reason: Shortness Of Breath Aspirin (Baby Aspirin) 81 mg PO QDAY [facility] Last Admin: 03/29/20 09:54 Dose: 81 mg Documented by: Atorvastatin Calcium (Lipitor) 40 mg PO QHS [facility] Carvedilol (Coreg) 12.5 mg PO BID [facility] Last Admin: 03/29/20 09:54 Dose: 12.5 mg Documented by: Famotidine (Pepcid) 20 mg IV BID [facility] Last Admin: 03/29/20 09:55 Dose: 20 mg Documented by: Furosemide (Lasix) 40 mg IV 0600,1800 [facility] Metoclopramide HCl (Reglan) 10 mg IV Q6H PRN PRN Reason: Nausea And Vomiting Ondansetron HCl (Zofran) 4 mg IV Q8H PRN PRN Reason: Nausea And Vomiting Potassium Chloride (K-Dur) 40 meq PO QDAY [facility] Senna (Senokot) 8.6 mg PO Q12HR PRN PRN Reason: Constipation Sodium Chloride (Sodium Chloride Flush Syringe 10 Ml) 10 ml IV BID [facility] Last Admin: 03/29/20 09:54 Dose: 10 ml Documented by: Sodium Chloride (Sodium Chloride Flush Syringe 10 Ml) 10 ml IV PRN PRN PRN Reason: LINE FLUSH Zolpidem Tartrate (Ambien) 5 mg PO QHS PRN PRN Reason: Insomnia Review of Systems Cardiovascular: edema, shortness of breath, no chest pain, no palpitations Physical Examination Vital Signs Temp Pulse Resp BP Pulse Ox 98.5 F 81 16 156/81 97 03/29/20 01:22 03/29/20 01:22 03/29/20 01:22 03/29/20 01:22 03/29/20 01:22 General appearance: no acute distress Cardiac: Positive: Reg Rate and Rhythm Lungs: Positive: Decreased Breath Sounds Neuro: Positive: Weakness Extremities: Present: +1 Edema Results 03/29/20 05:48 03/29/20 05:48 Cardiac Enzymes 03/29/20 Range/Units 05:48 AST 22 (5-40) units/L Lipids 03/29/20 Range/Units 05:48 Triglycerides 67 (2-149) mg/dL Cholesterol 79 (50-199) mg/dL HDL Cholesterol 48 (40-59) mg/dL Cholesterol/HDL Ratio 1.64 % CBC 03/29/20 03/29/20 Range/Units 02:01 05:48 WBC 9.7 9.1 (4.5-11.0) K/mm3 RBC 3.70 3.59 L (3.65-5.03) M/mm3 Hgb 10.3 10.2 (10.1-14.3) gm/dl Hct 32.4 31.6 (30.3-42.9) % Plt Count 291 258 (140-440) K/mm3 Lymph # (Auto) 1.0 L 0.9 L (1.2-5.4) K/mm3 Motley # (Auto) 0.6 0.7 (0.0-0.8) K/mm3 Eos # (Auto) 0.3 0.3 (0.0-0.4) K/mm3 Baso # (Auto) 0.0 0.0 (0.0-0.1) K/mm3 Comprehensive Metabolic Panel 03/29/20 03/29/20 Range/Units 02:01 05:48 Sodium 141 138 (137-145) mmol/L Potassium 3.3 L 3.0 L (3.6-5.0) mmol/L Chloride 100.1 97.9 L (98-107) mmol/L Carbon Dioxide 29 32 H (22-30) mmol/L BUN 11 11 (7-17) mg/dL Creatinine 0.9 1.0 (0.6-1.2) mg/dL Glucose 108 H 111 H (65-100) mg/dL Calcium 8.4 8.6 (8.4-10.2) mg/dL AST 22 (5-40) units/L ALT 19 (7-56) units/L Alkaline Phosphatase 94 (35-129) units/L Total Protein 5.8 L (6.3-8.2) g/dL Albumin 2.9 L (3.9-5) g/dL Assessment and Plan - Patient Problems (1) Acute on chronic congestive heart failure Current Visit: Yes Status: Acute Plan to address problem: Acute on chronic systolic heart failure s/p AICD noncompliant with medications and dietary restrictions followed by [facility] Sodium and fluid restriction. Echocardiogram has been completed, results are pending Resume guideline directed medical therapy for chronic systolic heart failure. Obtain cardiac records from [facility] for review. <ESTHELA BRAMBILA Last Filed: 12/06/20 09:09> History of Present Illness History of present illness: I SAW THIS PT & AGREE WITH THE Dx & Tx PLAN Medications and Allergies Active Meds: Active Medications Acetaminophen (Tylenol) 650 mg PO Q4H PRN PRN Reason: Pain MILD(1-3)/Fever >100.5/RICO Last Admin: 03/30/20 21:30 Dose: 650 mg Documented by: Al Hydrox/Mg Hydrox/Simethicone (Alum-Mag Hydrox-Simeth [id number]/5ml) 30 ml PO Q4H PRN PRN Reason: Indigestion Albuterol (Proventil) 2.5 mg IH Q4HRT PRN PRN Reason: Shortness Of Breath Aspirin (Baby Aspirin) 81 mg PO QDAY [facility] Last Admin: 03/31/20 10:59 Dose: 81 mg Documented by: Atorvastatin Calcium (Lipitor) 40 mg PO QHS [facility] Last Admin: 03/31/20 22:00 Dose: 40 mg Documented by: Carvedilol (Coreg) 12.5 mg PO BID [facility] Last Admin: 03/31/20 21:56 Dose: 12.5 mg Documented by: Famotidine (Pepcid) 20 mg IV BID [facility] Last Admin: 03/31/20 21:56 Dose: 20 mg Documented by: Furosemide (Lasix) 40 mg IV 0600,1800 [facility] Last Admin: 04/01/20 06:20 Dose: 40 mg Documented by: Lisinopril (Zestril) 5 mg PO QDAY [facility] Last Admin: 03/31/20 10:59 Dose: 5 mg Documented by: Metoclopramide HCl (Reglan) 10 mg IV Q6H PRN PRN Reason: Nausea And Vomiting Ondansetron HCl (Zofran) 4 mg IV Q8H PRN PRN Reason: Nausea And Vomiting Senna (Senokot) 8.6 mg PO Q12HR PRN PRN Reason: Constipation Sodium Chloride (Sodium Chloride Flush Syringe 10 Ml) 10 ml IV BID [facility] Last Admin: 03/31/20 22:00 Dose: 10 ml Documented by: Sodium Chloride (Sodium Chloride Flush Syringe 10 Ml) 10 ml IV PRN PRN PRN Reason: LINE FLUSH Spironolactone (Aldactone) 25 mg PO QDAY [facility] Last Admin: 03/31/20 10:59 Dose: 25 mg Documented by: Zolpidem Tartrate (Ambien) 5 mg PO QHS PRN PRN Reason: Insomnia Last Admin: 03/30/20 21:31 Dose: 5 mg Documented by: Physical Examination Vital Signs Temp Pulse Resp BP Pulse Ox 98.5 F 81 16 156/81 97 03/29/20 01:22 03/29/20 01:22 03/29/20 01:22 03/29/20 01:22 03/29/20 01:22 Results 03/29/20 05:48 03/30/20 15:12 Assessment and Plan - Patient Problems (1) Acute on chronic congestive heart failure Current Visit: Yes Status: Acute (2) Essential (primary) hypertension Current Visit: Yes Status: Acute
[2020-03-29] MEDS: LISINOPRIL 5 MG TAB PO SCH (15:30)
--- NOTE | 2020-03-29 15:32 | Event Note ---
Date: 03/29/20 Patient seen and examined patient is a 69-year-old female presents to emergency room with complaints of shortness of breath, lower extremity swelling and pain and difficulty walking for 2 to 3 days. She has past medical history of CHF with implanted ICD, Hypertension, and diabetes. ED work up; WBC 9.7, hemoglobin 10.3, Plt 291, Sodium 141, Potassium 3.3, Cr 0.9 BNP 10,465, troponin <0.010 Chest x-ray shows mild central congestion Bilateral leg US-negative for DVT Active admitted for CHF exacerbation, continue current management and plan Acute on chronic systolic heart failure - monitor with serial CE and EKG - will place on Aspirin, statin, and Lasix IV - order 2D echo and consult cardiology - cardiac diet now, daily weights, monitor in's and O's -Obtain medical records from [facility] patient seen and examined Noncompliance, counseled for medication compliance - provide DVT Px with lovenox
[2020-03-29] MEDS: FUROSEMIDE 40 MG/4 ML INJ IV SCH (17:48)
[2020-03-29] MEDS: ZOLPIDEM 5 MG TAB PO PRN (22:03)
[2020-03-30] MEDS: FUROSEMIDE 40 MG/4 ML INJ IV SCH ×2 (05:35→17:44)
[2020-03-30] MEDS: ASPIRIN 81 MG TAB CHEW PO SCH (09:26)
[2020-03-30] MEDS: SPIRONOLACTONE 25 MG TAB PO SCH (09:26)
[2020-03-30] MEDS: LISINOPRIL 5 MG TAB PO SCH (09:26)
[2020-03-30] MEDS: FAMOTIDINE 20 MG/2 ML INJ IV SCH ×2 (09:26→21:31)
[2020-03-30] MEDS: carvediloL 12.5 MG TAB PO SCH ×2 (09:26→21:31)
--- NOTE | 2020-03-30 09:53 | Progress Note ---
<KAROLMANUELROB - Last Filed: 03/30/20 09:49> Assessment and Plan - Patient Problems (1) Acute on chronic congestive heart failure Current Visit: Yes Status: Acute Plan to address problem: Acute on chronic systolic heart failure LVEF 10-15% by echo this admission presence of AICD noncompliant with medications and dietary restrictions follows with [facility] at [place] - angiographically normal coronary arteries but a decrease ejection fraction 15-20%. Sodium and fluid restriction. Continue guideline directed medical therapy for chronic systolic heart failure. Otherwise, conservative cardiac management. (2) Essential hypertension Current Visit: Yes Status: Acute Subjective Date of service: 03/30/20 Interval history: No cardiac events overnight. Patient report she is diuresing well. Records received from [place]. Patient has a long standing history of dilated cardiomyopathy. In 2016, she had a cardiac cath that showed angiographically normal coronary arteries but a decrease ejection fraction 15-20%. Objective Vital Signs Temp Pulse Resp BP Pulse Ox 03/30/20 07:46 98.9 F 66 18 136/79 100 03/30/20 06:00 72 03/30/20 04:29 98.0 F 71 24 105/69 92 03/29/20 23:36 98.0 F 80 18 131/74 96 03/29/20 22:03 70 125/60 03/29/20 22:00 70 03/29/20 19:14 98.5 F 69 20 125/60 97 03/29/20 16:15 98.9 F 65 18 132/82 98 03/29/20 14:00 58 L - Physical Examination General: No Apparent Distress Neck: Positive: trachea midline Cardiac: Positive: Reg Rate and Rhythm Lungs: Positive: Decreased Breath Sounds Neuro: Positive: Weakness Extremities: Present: +1 Edema <ESTHELA BRAMBILA - Last Filed: 04/01/20 09:02> Assessment and Plan - Patient Problems (1) Acute on chronic congestive heart failure Current Visit: Yes Status: Acute (2) Essential (primary) hypertension Current Visit: Yes Status: Acute Subjective Interval history: I SAW THIS PT & AGREE WITH THE Dx & Tx PLAN Objective Vital Signs Temp Pulse Resp BP Pulse Ox 04/01/20 08:41 97.6 F 67 18 121/65 100 04/01/20 04:24 97.3 F L 78 18 117/58 98 03/31/20 23:20 98.6 F 79 18 110/52 98 03/31/20 22:00 79 18 03/31/20 21:56 73 139/65 03/31/20 19:32 97.2 F L 71 18 122/57 93 03/31/20 15:07 98.4 F 68 18 128/74 99 03/31/20 11:16 70 99 03/31/20 11:14 98.0 F 20 140/75 03/31/20 10:00 69
[2020-03-30] MEDS ORDERED: POTASSIUM CHLORIDE ER 20 MEQ TAB PO SCH (10:00)
--- NOTE | 2020-03-30 15:50 | Progress Note ---
Assessment and Plan --Acute on chronic systolic heart failure - monitor with serial CE and EKG - will place on Aspirin, statin, and Lasix IV - order 2D echo and consult cardiology - cardiac diet now, daily weights, monitor in's and O's -O2d echo showed EF 10-15% --Noncompliance, counseled for medication compliance provide DVT Px with lovenox --Essential (primary) hypertension Monitor blood pressure Continue antihypertensive Adjust if needed --Diabetes Monitor blood sugar with SSI patient on home [id number] at d/c check hga1c --Hypokalemia replace potassium Am lab bmp and monitor electrolyte -- DVT prophylaxis Lovenox Brief History: Patient is a 69-year-old female presents to emergency room with complaints of shortness of breath, lower extremity swelling and pain and difficulty walking for 2 to 3 days. She has past medical history of CHF with implanted ICD, Hypertension, and diabetes. ED work up; WBC 9.7, hemoglobin 10.3, Plt 291, Sodium 141, Potassium 3.3, Cr 0.9 BNP 10,465, troponin <0.010 Chest x-ray shows mild central congestion Bilateral leg US-negative for DVT Admitted for CHF exacerbation, continue current management and plan 03/30: cont diuresis, monitor ins/os/daily wt. if clinically stable possible d/c tomorrow Subjective Date of service: 03/30/20 Interval history: Patient seen and examined c/o SOB on minimal exertion LE swelling improved denies any chest pain Objective - Exam Narrative Exam: General: No Apparent Distress Neck: Positive: trachea midline Cardiac: Positive: Reg Rate and Rhythm Lungs: Positive: Decreased Breath Sounds Neuro: Positive: Weakness Extremities: Present: +1 Edema - Constitutional Vitals: Vital Signs - 12hr 03/30/20 03/30/20 03/30/20 04:29 06:00 07:46 Temperature 98.0 F 98.9 F Pulse Rate 71 72 66 Respiratory 24 18 Rate Blood Pressure 105/69 136/79 O2 Sat by Pulse 92 100 Oximetry 03/30/20 14:00 Temperature Pulse Rate 70 Respiratory Rate Blood Pressure O2 Sat by Pulse Oximetry - Labs CBC & Chem 7: 03/29/20 05:48 03/30/20 15:12 Labs: Abnormal lab results 03/29/20 03/29/20 03/30/20 Range/Units 16:13 20:38 07:44 POC Glucose 139 H 191 H 143 H (70-105) mg/dL 03/30/20 Range/Units 10:49 POC Glucose 134 H (70-105) mg/dL HEART Score - HEART Score Troponin: Troponin T < 0.010 ng/mL (0.00-0.029) 03/29/20 05:48
[2020-03-30 16:22] LABS: Calcium 8.2 mg/dL (8.4-10.2)
[2020-03-30] MEDS: ACETAMINOPHEN 325 MG TAB PO PRN (21:30)
[2020-03-30] MEDS: ZOLPIDEM 5 MG TAB PO PRN (21:31)
[2020-03-31] MEDS: FUROSEMIDE 40 MG/4 ML INJ IV SCH ×2 (05:19→17:16)
[2020-03-31] MEDS: LISINOPRIL 5 MG TAB PO SCH (10:59)
[2020-03-31] MEDS: FAMOTIDINE 20 MG/2 ML INJ IV SCH ×2 (10:59→21:56)
[2020-03-31] MEDS: ASPIRIN 81 MG TAB CHEW PO SCH (10:59)
[2020-03-31] MEDS: SPIRONOLACTONE 25 MG TAB PO SCH (10:59)
[2020-03-31] MEDS: carvediloL 12.5 MG TAB PO SCH ×2 (10:59→21:56)
--- NOTE | 2020-03-31 11:14 | Progress Note ---
Assessment and Plan - Patient Problems (1) Acute on chronic congestive heart failure Current Visit: Yes Status: Acute (2) Essential (primary) hypertension Current Visit: Yes Status: Acute Subjective Date of service: 03/31/20 Interval history: breathing better Objective Vital Signs Temp Pulse Resp BP Pulse Ox 03/31/20 05:42 73 03/31/20 04:58 98.0 F 73 22 110/64 96 03/30/20 23:46 97.9 F 78 20 130/66 100 03/30/20 22:00 76 03/30/20 21:31 75 128/59 03/30/20 19:50 98.0 F 71 20 128/59 94 03/30/20 16:13 98.9 F 68 19 133/72 96 03/30/20 14:00 70 - Physical Examination General: No Apparent Distress, Other (obese) Neck: Positive: trachea midline Cardiac: Positive: Reg Rate and Rhythm Lungs: Positive: Rales (minimal) Neuro: Positive: Weakness Extremities: Present: edema (tr), +1 Edema - Labs and Meds Comprehensive Metabolic Panel 03/30/20 Range/Units 15:12 Sodium 142 (137-145) mmol/L Potassium 4.2 D (3.6-5.0) mmol/L Chloride 98.7 (98-107) mmol/L Carbon Dioxide 35 H (22-30) mmol/L BUN 15 (7-17) mg/dL Creatinine 1.1 (0.6-1.2) mg/dL Glucose 143 H (65-100) mg/dL Calcium 8.2 L (8.4-10.2) mg/dL
--- NOTE | 2020-03-31 15:56 | Progress Note ---
Assessment and Plan - Patient Problems (1) Acute on chronic congestive heart failure Current Visit: Yes Status: Acute Plan to address problem: VEF 10-15% by echo this admission significant improvement over the past 24 hours. presence of AICD noncompliant with medications and dietary restrictions follows with [facility] at [place] - angiographically normal coronary arteries but a decrease ejection fraction 15-20%. Patient is disease state fairly well compensated except for lower extremity edema. This is also improving. Should be stable for discharge in a.m. (2) MURRIETA (dyspnea on exertion) Current Visit: Yes Status: Acute Plan to address problem: Improving. (3) Diabetes Current Visit: Yes Status: Acute Plan to address problem: Patient has adequate blood glucose control without oral hypoglycemic medications. (4) Essential (primary) hypertension Current Visit: Yes Status: Acute Plan to address problem: Optimal control of blood pressure with lisinopril and Coreg and diuretic. (5) Lower extremity pain Current Visit: Yes Status: Acute Qualifiers: Laterality: bilateral Qualified Code(s): M79.604 - Pain in right leg; M79.6 05 - Pain in left leg Plan to address problem: Secondary to edema improving. Subjective Date of service: 03/31/20 Principal diagnosis: Congestive heart failure CHF exacerbation Interval history: Six 9-year-old female with a history of congestive heart failure ejection fraction 10%. Presented with bilateral lower extremity edema worsening over several week period of time in which patient cannot walk. Patient was admitted diuresed x24 hours much improved. Still with some swelling in pain. Will diurese 1 more day prior to discharge. Objective - Constitutional Vitals: Vital Signs - 12hr 03/31/20 03/31/20 03/31/20 04:58 05:42 10:00 Temperature 98.0 F Pulse Rate 73 73 69 Respiratory 22 Rate Blood Pressure 110/64 O2 Sat by Pulse 96 Oximetry General appearance: Present: no acute distress, well-nourished - EENT Eyes: PERRL, EOM intact ENT: hearing intact, clear oral mucosa Ears: bilateral: normal - Neck Neck: supple, normal ROM - Respiratory Respiratory effort: normal Respiratory: bilateral: rhonchi (At bilateral bases only) - Breasts Breasts: normal - Cardiovascular Rhythm: regular Heart Sounds: Present: S1 & S2. Absent: gallop, rub Extremities: pulses intact, No edema, normal color, Full ROM - Gastrointestinal General gastrointestinal: Present: soft, non-tender, non-distended, normal bowel sounds - Genitourinary Female genitourinary: normal - Integumentary Integumentary: clear, warm, dry - Musculoskeletal Musculoskeletal: strength equal bilaterally, other (+3 pitting edema.) - Neurologic Neurologic: moves all extremities - Psychiatric Psychiatric: memory intact, appropriate mood/affect, intact judgment & insight - Labs CBC & Chem 7: 03/29/20 05:48 03/30/20 15:12 Labs: Abnormal lab results 03/30/20 03/30/20 03/30/20 Range/Units 15:12 16:08 21:07 Carbon Dioxide 35 H (22-30) mmol/L Glucose 143 H (65-100) mg/dL POC Glucose 153 H 133 H (70-105) mg/dL Calcium 8.2 L (8.4-10.2) mg/dL 03/31/20 Range/Units 11:46 Carbon Dioxide (22-30) mmol/L Glucose (65-100) mg/dL POC Glucose 141 H (70-105) mg/dL Calcium (8.4-10.2) mg/dL HEART Score - HEART Score Troponin: Troponin T < 0.010 ng/mL (0.00-0.029) 03/29/20 05:48
[2020-04-01] MEDS: FUROSEMIDE 40 MG/4 ML INJ IV SCH (06:20)
--- NOTE | 2020-04-01 09:42 | Discharge Summary ---
Providers - Providers Date of Admission: 03/29/20 04:05 Date of discharge: 04/01/20 Attending physician: DEBORAH SANCHEZ 03/29/20 05:12 Consult to Physician [CONS] Routine Comment: Consulting Provider: HEATH RIVERA Physician Instructions: Reason For Exam: chf Primary care physician: DUTY ENGINEER Hospitalization Condition: Critical Disposition: DC-01 TO HOME OR SELFCARE - Discharge Diagnoses (1) Acute on chronic congestive heart failure Status: Acute Comment: Patient presented with exacerbation of CHF not so much pulmonary angel but lower extremities of swelling in which she cannot walk. Patient was diuresed well less lower extremity pain the additional diuresis can be done with p.o. medications as outpatient. Will increase Lasix to 40 twice daily. (2) MURRIETA (dyspnea on exertion) Status: Acute Comment: Resolved (3) Diabetes Status: Acute Comment: Fairly well controlled we will continue previous oral hypoglycemics. (4) Essential (primary) hypertension Status: Resolved (5) Lower extremity pain Status: Acute Qualifiers: Laterality: bilateral Qualified Code(s): M79.604 - Pain in right leg; M79.605 - Pain in left leg Comment: Resolved as edema improves. Core Measure Documentation - Palliative Care Palliative Care/ Comfort Measures: Not Applicable - Core Measures Any of the following diagnoses?: heart failure - Heart Failure Discharge Requirements NICKIE/ARB for LVSD if EF <40%: Yes Beta pratibha at discharge: Yes Exam - Constitutional Vitals: Temp Pulse Resp BP Pulse Ox 97.6 F 67 18 121/65 100 04/01/20 08:41 04/01/20 08:41 04/01/20 08:41 04/01/20 08:41 04/01/20 08:41 General appearance: Present: no acute distress, well-nourished - EENT Eyes: Present: PERRL ENT: hearing intact, clear oral mucosa - Neck Neck: Present: supple, normal ROM - Respiratory Respiratory effort: normal Respiratory: bilateral: CTA - Cardiovascular Heart Sounds: Present: S1 & S2. Absent: rub, click - Extremities Extremities: pulses symmetrical, No edema Peripheral Pulses: within normal limits - Abdominal General gastrointestinal: Present: soft, non-tender, non-distended, normal bowel sounds Female genitourinary: Present: normal - Integumentary Integumentary: Present: clear, warm, dry - Musculoskeletal Musculoskeletal: strength equal bilaterally, other (Significantly improved edema.) - Psychiatric Psychiatric: appropriate mood/affect, intact judgment & insight - Neurologic Neurologic: CNII-XII intact, moves all extremities Plan Activity: up only with assistance Weight Bearing Status: Weight Bear as Tolerated Diet: low salt Special Instructions: restrict fluid intake to (2l), no heavy lifting Follow up with: PRIMARY CARE,MD [Primary Care Provider] - 3-5 Days Prescriptions: Spironolactone [Aldactone] 25 mg PO QDAY #30 tablet Aspirin [Aspirin BABY CHEW TAB] 81 mg PO QDAY #30 tab.chew carvediloL [Coreg] 12.5 mg PO BID #60 tablet Furosemide [Lasix TAB] 40 mg PO BID 5 Days #60 AtorvaSTATin [Lipitor] 40 mg PO QHS #30 tablet lisinopriL [Zestril TAB] 5 mg PO QDAY #30 tablet
[2020-04-01] MEDS: FAMOTIDINE 20 MG/2 ML INJ IV SCH (10:50)
[2020-04-01] MEDS: LISINOPRIL 5 MG TAB PO SCH (10:50)
[2020-04-01] MEDS: ASPIRIN 81 MG TAB CHEW PO SCH (10:50)
[2020-04-01] MEDS: SPIRONOLACTONE 25 MG TAB PO SCH (10:50)
[2020-04-01] MEDS: carvediloL 12.5 MG TAB PO SCH (10:50)
--- NOTE | 2020-04-01 13:09 | Progress Note ---
Assessment and Plan - Patient Problems (1) Acute on chronic congestive heart failure Current Visit: Yes Status: Acute (2) Essential (primary) hypertension Current Visit: Yes Status: Resolved Subjective Date of service: 04/01/20 Principal diagnosis: Congestive heart failure CHF exacerbation Interval history: BREATHING BETTER Objective Vital Signs Temp Pulse Pulse Resp BP Pulse Ox 04/01/20 12:31 97.6 F 68 18 119/63 97 04/01/20 10:00 67 67 18 100 04/01/20 08:41 97.6 F 67 18 121/65 100 04/01/20 04:24 97.3 F L 78 18 117/58 98 03/31/20 23:20 98.6 F 79 18 110/52 98 03/31/20 22:00 79 18 03/31/20 21:56 73 139/65 03/31/20 19:32 97.2 F L 71 18 122/57 93 03/31/20 15:07 98.4 F 68 18 128/74 99 - Physical Examination General: No Apparent Distress, Other (obese) Neck: Positive: trachea midline Cardiac: Positive: Reg Rate and Rhythm Lungs: Positive: clear to auscultation Neuro: Positive: Weakness Abdomen: Positive: Soft Extremities: Present: edema (tr)
[2020-04-01 20:13] VITALS: BP 116/57
== END 2020-04-01 21:31 | disposition home or self-care (01) ==
LOC: ED 01:16 → 4A 04:05
PROVIDERS: ADMIT Internal Medicine; ATTEND Internal Medicine
DX: I11.0 Hypertensive heart disease with heart failure (principal); I50.43 Acute on chronic combined systolic (congestive) and diastolic (congestive) heart failure; M79.604 Pain in right leg; M79.605 Pain in left leg; E11.9 Type 2 diabetes mellitus without complications; E87.6 Hypokalemia; E78.5 Hyperlipidemia, unspecified; R06.00 Dyspnea, unspecified; R06.02 Shortness of breath; R60.0 Localized edema; Z95.810 Presence of automatic (implantable) cardiac defibrillator; Z79.84 Long term (current) use of oral hypoglycemic drugs; Z79.82 Long term (current) use of aspirin; Z91.19 Patient's noncompliance with other medical treatment and regimen
CPT/HCPCS: 36415; 71045; 80048; 80053; 80061; 81001; 82962; 83036; 83880; 84484; 85025; 93005; 93306; 93970; 96374; 96375; 96376; 99291; A9270; G0378; J1940; J2270